=== PATIENT | female | born 1985 | race Caucasian/White ===

== ENCOUNTER 2016-12-11 08:35 | Day surgery (SDC) | payer MEDICAID, OTHER ==
[~2016-12-11] VITALS: Ht 180.3 cm; Wt 102.0 kg
[2016-12-11] VITALS (10 sets, daily range): BP systolic 91–127; BP diastolic 54–79; PULSE 78–106; RESP 15–20; Ht 180.3 cm; Wt 102.0 kg
[~2016-12-11 08:35] MED LIST: ALBUTEROL; CEFAZOLIN 2 GM/50 ML (PMX) 50 ML IVPB ONE; PROPOFOL 200 MG INJ ONE; SOD CHLORIDE 0.9% 1,000 ML IV SCH
[2016-12-11] MEDS ORDERED: ALBU8.5H3 INH (09:36)
[2016-12-11] MEDS ORDERED: MOME13HF2 INHALATION (09:36)
[2016-12-11] MEDS ORDERED: MOME13HF INHALATION (09:37)
[2016-12-11 09:46] LABS: BASOPHILS % 0.4 % (0.0-2.0); EOSINOPHILS # 0.4 10^3/ul (0.0-0.5); EOSINOPHILS % 3.5 % (0.0-7.0); HEMATOCRIT 37.6 % (37.0-47.0); HEMOGLOBIN 12.6 g/dl (12.0-16.0); LYMPHOCYTES # 2.6 10^3/ul (0.8-2.9); LYMPHOCYTES % 26.2 % (15.0-51.0); MEAN CORPUSCULAR HEMOGLOBIN 29.9 pg (29.0-33.0); MEAN CORPUSCULAR HGB CONC 33.6 g/dl (32.0-37.0); MEAN PLATELET VOLUME 7.8 fl (7.4-10.4); MONOCYTE # 0.8 10^3/ul (0.3-0.9); MONOCYTES % 7.9 % (0.0-11.0); NEUTROPHIL # 6.2 10^3/ul (1.6-7.5); PLATELET COUNT 361 10^3/UL (140-440); RED BLOOD COUNT 4.23 10^6/ul (4.20-5.40); RED CELL DISTRIBUTION WIDTH 12.7 % (11.5-14.5)
[2016-12-11] MEDS ORDERED: FENTAnyl 50 MCG/ML VIAL ONE (09:50)
[2016-12-11] MEDS ORDERED: PROPOFOL 20 ML ONE (09:50)
[2016-12-11] MEDS ORDERED: MIDAZOLAM 1 MG/ML 2 ML INJ ONE (09:50)
[2016-12-11 09:51] LABS: CONDITION 1
[2016-12-11 09:52] LABS: INR 1.01; PROTIME 13.3 Sec (12.2-14.2)
[2016-12-11 09:53] LABS: PARTIAL THROMBOPLASTIN TIME 30.9 Sec (25.0-35.0)
[2016-12-11 10:10] LABS: CALCIUM 8.8 mg/dl (8.4-10.2); CREATININE 0.67 mg/dl (0.44-1.00); POTASSIUM 4.1 mmol/L (3.5-5.1)
[2016-12-11] MEDS ORDERED: ONDANSETRON 4 MG INJ ONE (10:24)
[2016-12-11] MEDS ORDERED: DEXAMETHASONE 4 MG/ML 1 ML INJ ONE (10:24)
[2016-12-11] MEDS ORDERED: CEFAZOLIN 1 GM INJ ONE (10:24)
[2016-12-11] MEDS ORDERED: KETOROLAC 30 MG INJ ONE (10:24)
[2016-12-11] MEDS ORDERED: METOCLOPRAMIDE 10 MG INJ ONE (10:24)
[2016-12-11] MEDS ORDERED: EPHEDrine SULFATE 50 MG/5 ML SYG ONE (10:44)
[2016-12-11] MEDS ORDERED: HYDROmorphONE (0.2 MG/ML) 10ML SYG IV PRN ×3 (11:00)
[2016-12-11] MEDS ORDERED: ONDANSETRON 4 MG INJ IV PRN (11:00)
[2016-12-11] MEDS ORDERED: morphine (1 MG/ML) 10ML SYRINGE IV PRN ×2 (11:00)
[2016-12-11] MEDS ORDERED: MEPERIDINE 25 MG INJ IV PRN (11:00)
[2016-12-11] MEDS ORDERED: DIPHENHYDRAMINE 50 MG INJ IV PRN (11:00)
--- NOTE | 2016-12-11 13:37 | OPR ---
DATE OF OPERATION: 12/11/2016 PREOPERATIVE DIAGNOSIS: Left breast mass. POSTOPERATIVE DIAGNOSIS: Left breast mass. OPERATION PERFORMED: Excision of left breast mass. ANESTHESIA: General. ANESTHESIOLOGIST: SURGEON: Milan Peters MD OCULAR CARE TECHNICIAN: Susana Schwab MD INDICATIONS FOR PROCEDURE: The patient is a 31-year-old female who presented with a palpable and sy mptomatic left breast mass. 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 The patient requested excision. She consented and was scheduled for surgery. DESCRIPTION OF PROCEDURE: The patient was brought to the operating theater, placed under general an esthesia. The left breast was prepped and draped in the usual sterile fashion. A curvilinear incis ion was made directly over the mass, which was at approximately the 3 o'clock location approximately 3 to 4 cm from the nipple-areolar border. Subcutaneous tissue was dissected with cautery. A well circumscribed mass was found deep within the breast parenchyma. This was meticulously dissected usi ng cautery and sent for permanent pathologic analysis. The wound was irrigated. Minimal bleeding w as controlled with cautery. The skin was then reapproximated with 5-0 PDS suture in subcuticular fa shion, and benzoin and Steri-Strips were applied. Patient tolerated procedure well. Estimated bloo d loss was 10 mL. There were no complications and the patient was transported in stable condition t o the recovery room. Dictated By: MILAN PETERS MD TL/YULY Conf#: [id number] DID#: [id number] CC: ARJUN SCHWAB MD;*EndCC*
== END 2016-12-11 12:49 | disposition home or self-care (01) ==
LOC: SDS 08:35
PROVIDERS: ATTEND Surgery Surgical Oncology
DX: N63 Unspecified lump in breast (principal); D24.2 Benign neoplasm of left breast
CPT/HCPCS: 19120; 80048; 84703; 85025; 85610; 85730; 88307; J0690; J1100; J1885; J2250; J2405; J2765; J3010

== ENCOUNTER 2017-12-13 20:58 | Emergency (ER) | END 2017-12-13 23:42 | disposition left against medical advice (07) ==